=== PATIENT | female | born 1990 | race Caucasian/White ===

== ENCOUNTER 2019-09-08 15:45 | Emergency (ER) | payer OTHER ==
[2019-09-08] MEDS ORDERED: HYDROmorphone 0.5 MG/0.5 ML Syringe IM ONE (16:22)
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
--- NOTE | 2019-09-09 13:47 | CR ---
Right shoulder: Three views of the right shoulder were obtained. Comparison: No previous study. Displaced mid right clavicle fracture is seen with minimal comminution. Overlapping of fracture fragments are noted. Other portions of the right shoulder study appear within normal limits. Impression: 1. Right clavicle fracture as described above. Diagnostic code #3 This report was dictated in [place] Standard Time
== END 2019-09-08 17:43 | disposition home or self-care (01) ==
LOC: JD.ED 15:45
DX: S42.021A Displaced fracture of shaft of right clavicle, initial encounter for closed fracture (principal); V86.56XA Driver of dirt bike or motor/cross bike injured in nontraffic accident, initial encounter
CPT/HCPCS: 29105; 73030; 96372; 99283; J1170

== ENCOUNTER 2019-09-13 08:36 | Day surgery (SDC) | payer OTHER ==
[~2019-09-13 08:36] MED LIST: Lactated Ringers 1,000 ML IV SCH; Lidocaine 1%/Sod Bicarbonate in NS 8.4% 1 ML Syringe IDERM PRN; Sodium Chloride 0.9% 10 ML Syringe FLUSH PRN
[2019-09-13] MEDS ORDERED: Bupivacaine 0.25% 10 ML SDV ONE ×2 (08:57→09:20)
[2019-09-13] MEDS ORDERED: Ondansetron 4 MG/2 ML SDV ONE (09:16)
[2019-09-13] MEDS ORDERED: Propofol 200 MG/20 ML SDV ONE (09:16)
[2019-09-13] MEDS ORDERED: fentaNYL 250 MCG/5 ML SDV ONE (09:16)
[2019-09-13] MEDS ORDERED: Midazolam 1 MG/ML 2 ML SDV ONE (09:16)
[2019-09-13] MEDS ORDERED: Lidocaine 1% 4 ML ONE (09:16)
[2019-09-13] MEDS ORDERED: Rocuronium 50 MG/5 ML Vial ONE (09:16)
[2019-09-13] MEDS ORDERED: ceFAZolin 1 GM Vial ONE (09:17)
[2019-09-13] MEDS ORDERED: Ketorolac 30 MG/ML SDV ONE (09:17)
--- NOTE | 2019-09-13 09:48 | PCM.PREANE ---
Preanesthetic Assessment - Procedure Proposed Procedure: ORIF right clavicle - Anesthesia/Transfusion/Family Hx Anesthesia History: Prior Anesthesia Without Reaction Family History of Anesthesia Reaction: No Transfusion History: No Prior Transfusion(s) - Review of Systems General: No Symptoms Pulmonary: No Symptoms Cardiovascular: No Symptoms Gastrointestinal: No Symptoms Neurological: No Symptoms Other: Reports: Thyroid Problems (hashimotos- thyroid still functions normal) - Physical Assessment NPO Status Date: 09/12/19 NPO Status Time: 20:00 Vital Signs: Last Vital Signs Temp 98.1 F 09/13/19 08:45 Pulse 70 09/13/19 08:45 Resp 16 09/13/19 08:45 BP 122/70 09/13/19 08:45 Pulse Ox 99 09/13/19 08:45 Height: 5 ft 9 in Weight: 77.564 kg ASA Class: 2 Mental Status: Alert & Oriented x3 Airway Class: Mallampati = 1 Dentition: Reports: Normal Dentition Thyro-Mental Finger Breadths: 3 Mouth Opening Finger Breadths: 3 ROM/Head Extension: Full Lungs: Clear to Auscultation, Normal Respiratory Effort Cardiovascular: Regular Rate, Regular Rhythm, No Murmurs - Lab Values: Laboratory Last Values Urine HCG, Qual Negative (NEGATIVE) 09/13/19 08:44 MRSA (PCR) Negative 09/11/19 10:30 - Allergies Allergies/Adverse Reactions: Allergies Allergy/AdvReac Type Severity Reaction Status Date / Time shellfish derived Allergy Cannot Verified 09/12/19 13:22 Remember - Blood Blood Available: No - Acknowledgements Anesthesia Type Planned: General Anesthesia Pt an Appropriate Candidate for the Planned Anesthesia: Yes Alternatives and Risks of Anesthesia Discussed w Pt/Guardian: Yes Pt/Guardian Understands and Agrees with Anesthesia Plan: Yes PreAnesthesia Questionnaire Cardiovascular History: Reports: None Respiratory History: Reports: None Gastrointestinal History: Reports: None Genitourinary History: Reports: None BELLMAN History: Reports: None Musculoskeletal History: Reports: Other (See Below) Other Musculoskeletal History: current right clavicle fracture (09/2019) Neurological History: Reports: None Psychiatric History: Reports: None Endocrine/Metabolic History: Reports: Other (See Below) Other Endocrine/Metabolic History: hashimotos dx Hematologic History: Reports: None Immunologic History: Reports: None Oncologic (Cancer) History: Reports: None Dermatologic History: Reports: None - Past Surgical History Head Surgeries/Procedures: Reports: None HEENT Surgical History: Reports: Oral Surgery Cardiovascular Surgical History: Reports: None Respiratory Surgical History: Reports: None GI Surgical History: Reports: None Female Surgical History: Reports: None Male Surgical History: Reports: None Endocrine Surgical History: Reports: None Neurological Surgical History: Reports: None Oncologic Surgical History: Reports: None Dermatological Surgical History: Reports: None - SUBSTANCE USE Smoking Status *Q: Former Smoker (quit 10 years ago) Tobacco Use Within Last Twelve Months: No Second Hand Smoke Exposure: No Days Per Week of Alcohol Use: 1 Recreational Drug Use History: No - HOME MEDS Home Medications: Home Meds Cyclobenzaprine [Flexeril] 10 mg PO TID PRN 09/12/19 [History] Acetaminophen/HYDROcodone [[place] 325-5 MG] 1 - 2 tab PO Q6H PRN #20 tablet 09/12 [Rx] Acetaminophen/HYDROcodone [[place] 325-5 MG] 1 tab PO ASDIRECTED PRN 09/13/19 [ History] - CURRENT (IN HOUSE) MEDS Current Meds: Current Medications Lactated Ringer's (Ringers, Lactated) 1,000 mls @ 125 mls/hr IV ASDIRECTED NHI Stop: 09/13/19 23:00 Last Admin: 09/13/19 08:40 Dose: 125 mls/hr Lidocaine/Sodium Bicarbonate (Buffered Lidocaine 1% In Ns 8.4%) 0.25 ml IDERM ONETIME PRN PRN Reason: Prior to IV Start Stop: 09/13/19 18:00 Last Admin: 09/13/19 08:40 Dose: 0.25 ml Sodium Chloride (Saline Flush) 10 ml FLUSH ASDIRECTED PRN PRN Reason: Keep Vein Open Stop: 09/13/19 18:00 Discontinued Medications Bupivacaine HCl (Sensorcaine-Mpf 0.25%) Confirm Administered Dose 30 ml .ROUTE .STK-MED ONE Stop: 09/13/19 08:58 Bupivacaine HCl (Sensorcaine-Mpf 0.25%) Confirm Administered Dose 10 ml .ROUTE .STK-MED ONE Stop: 09/13/19 09:21 Cefazolin Sodium (Ancef) Confirm Administered Dose 2 gm .ROUTE .STK-MED ONE Stop: 09/13/19 09:18 Fentanyl (Sublimaze) Confirm Administered Dose 250 mcg .ROUTE .STK-MED ONE Stop: 09/13/19 09:17 Lidocaine HCl (Xylocaine-Mpf 1%) Confirm Administered Dose 4 mls @ as directed .ROUTE .STK-MED ONE Stop: 09/13/19 09:17 Ketorolac Tromethamine (Toradol) Confirm Administered Dose 30 mg .ROUTE .STK- MED ONE Stop: 09/13/19 09:18 Midazolam HCl (Versed 1 Mg/Ml) Confirm Administered Dose 2 mg .ROUTE .STK-MED ONE Stop: 09/13/19 09:17 Ondansetron HCl (Zofran) Confirm Administered Dose 4 mg .ROUTE .STK-MED ONE Stop: 09/13/19 09:17 Propofol (Diprivan 20 Ml) Confirm Administered Dose 200 mg .ROUTE .STK-MED ONE Stop: 09/13/19 09:17 Rocuronium [place] (Zemuron) Confirm Administered Dose 50 mg .ROUTE .STK-MED ONE Stop: 09/13/19 09:17
[2019-09-13] MEDS ORDERED: fentaNYL 100 MCG/2 ML SDV IVPUSH PRN (10:40)
[2019-09-13] MEDS ORDERED: HYDROmorphone 0.5 MG/0.5 ML Syringe IVPUSH PRN (10:40)
[2019-09-13] MEDS ORDERED: Ondansetron 4 MG/2 ML SDV IVPUSH PRN (10:40)
[2019-09-13] MEDS ORDERED: HYDROmorphone 0.5 MG/0.5 ML Syringe ONE (10:46)
[2019-09-13] MEDS ORDERED: Dexamethasone 4 MG/ML 5 ML MDV ONE (11:02)
[2019-09-13] MEDS ORDERED: Lactated Ringers 1,000 ML ONE (11:15)
--- NOTE | 2019-09-13 12:04 | PCM.POSTAN ---
POST ANESTHESIA ASSESSMENT - MENTAL STATUS Mental Status: Alert, Oriented - VITAL SIGNS Vital Signs: Last Vital Signs Temp 98.1 F 09/13/19 08:45 Pulse 70 09/13/19 08:45 Resp 16 09/13/19 08:45 BP 122/70 09/13/19 08:45 Pulse Ox 99 09/13/19 08:45 116/66 99% 74 18 97.7 - RESPIRATORY Respiratory Status: Respiratory Rate WNL, Airway Patent, O2 Saturation Stable, Supplemental Oxygen - CARDIOVASCULAR CV Status: Pulse Rate WNL, Blood Pressure Stable - GASTROINTESTINAL GI Status: No Symptoms - PAIN Pain Score: 6 (medicated) - POST OP HYDRATION Hydration Status: Adequate & Stable
--- NOTE | 2019-09-13 12:15 | CR ---
Right clavicle: Two fluoroscopic spot views of the right clavicle were obtained utilizing C-arm device. Comparison: Prior right shoulder study of 09/08/19. Current exam shows reduction of previous clavicle fracture with fixation by plate and screws. Fluoroscopy time given as 5.9 seconds. Impression: 1. Procedural study as noted above. Diagnostic code #2 This report was dictated in MDT
[2019-09-13] MEDS ORDERED: Acetaminophen/HYDROcodone 325-5 MG Tab PO PRN (13:18)
--- NOTE | 2019-09-17 12:28 | PCM.OPNOTE ---
- General Post-Op/Procedure Note Date of Surgery/Procedure: 09/13/19 Operative Procedure(s): open reduction internal fixation of right midshaft clavicle fracture Pre Op Diagnosis: right midshaft clavicle fracture Post-Op Diagnosis: Same Anesthesia Technique: General ET Tube, Local Primary Surgeon: Jose Enrique Dixon Anesthesia Provider: Dinorah Bhagat Gum Rolling Machine Tender: Nicole Calderon EBL in mLs: 5 Complications: None Condition: Good
--- NOTE | 2019-09-17 13:08 | OR ---
DATE OF OPERATION: 09/13/2019 SURGEON: Jose Enrique Dixon MD OPERATIVE PROCEDURE: Open reduction and internal fixation, right midshaft clavicle fracture. PREOPERATIVE DIAGNOSIS: Right midshaft clavicle fracture. POSTOPERATIVE DIAGNOSIS: Right midshaft clavicle fracture. ANESTHESIA: Technique: General endotracheal intubation with local. ANESTHESIA PROVIDER: Dinorah Bhagat CRNA ESTIMATED BLOOD LOSS: 5 mL. COMPLICATIONS: None. CONDITION: Stable. DESCRIPTION OF PROCEDURE: The patient was identified in the preop holding area. Proper site was marked and identified by surgeon. The patient was taken back to the operating theater where after adequate anesthesia, the patient's right upper extremity was sterilely prepped and draped in the usual sterile fashion. OR time-out was performed patient received 2 g IV Ancef. The patient was placed in a reverse Trendelenburg position. A standard anterior incision made over it was made over the clavicle. This was taken through the platysma level and was taken down to the fracture site which was identified. It was curetted and rongeured and evacuated all fracture hematoma. There was noted to be two small pieces of cortical bone that were nonviable, had no tissue attached that were removed from the wound. At this time, lobster claw reduction clamps were used to regain clavicle length and a 7-hole superior [place] clavicle compression plate was placed. It was found to be in proper position with anatomic reduction of the clavicle under C-arm fluoroscopy which was utilized during the entirety of the procedure. Next, a 3.5 cortical screw was placed medially and then a 3.5 cortical screw was placed laterally in the combination hole for compression across the fracture site. C-arm fluoroscopy was again utilized. It was found to have anatomic reduction. Two 3.5 locking screws were then placed on both medially and laterally to the fracture site. It was found to have adequate screw lengths on all them with good bicortical purchase, but no screws were noted to be long on C-arm fluoroscopy and had anatomic reduction. Adequate saline was then irrigated through the wound. 0 Vicryl was used for closure of the platysma level. 2-0 Vicryl was used subcutaneously, and Prineo was used for the skin. The patient tolerated the procedure well, was sent to PACU in stable condition. OPERATION PERFORMED: MMODAL /[id number]
== END 2019-09-13 14:28 | disposition home or self-care (01) ==
LOC: JD.SDS 08:36
PROVIDERS: ATTEND Orthopaedic Surgery
DX: S42.021A Displaced fracture of shaft of right clavicle, initial encounter for closed fracture (principal); Z91.013 Allergy to seafood; Z87.891 Personal history of nicotine dependence; Z79.899 Other long term (current) drug therapy; X58.XXXA Exposure to other specified factors, initial encounter
CPT/HCPCS: 23515; 76000; 81025; 87641; A9270; C1713; J0690; J1100; J1170; J1885; J2001; J2250; J2405; J2704; J2710; J3010; J3490; J7120; 00450